=== PATIENT | male | born 1960 | race Caucasian/White ===

== ENCOUNTER 2020-02-17 09:27 | Day surgery (SDC) | payer BC ==
[2020-02-17] VITALS (8 sets, daily range): BP systolic 101–165; BP diastolic 48–86
[~2020-02-17] VITALS: Ht 180.3 cm; Wt 97.2 kg
[2020-02-17] MEDS ORDERED: VANCOMYCIN 1,500MG inj. 1,500 MG in normal saline 500ml IV soln 300 ML IV ONE (09:55)
[2020-02-17] MEDS ORDERED: normal saline 1,000 ML IV SCH (09:55)
[2020-02-17] MEDS ORDERED: ceFAZolin 2gm in dextrose, iso 50 ML IV ONE (09:55)
[2020-02-17] MEDS ORDERED: SOTA80TA73 PO (10:13)
[2020-02-17] MEDS ORDERED: ALLO100T PO (10:13)
[2020-02-17] MEDS ORDERED: ASPI81TA52 PO (10:15)
--- NOTE | 2020-02-17 10:20 | NUR ---
Dr. Moreno reviewed pts EKG. no CA per
[2020-02-17 10:29] LABS: BASOPHILS # (AUTO) 0.1 X10'3 (0-0.2); EOSINOPHILS # (AUTO) 0.4 X10'3 (0-0.9); EOSINOPHILS % (AUTO) 5.3 % (0-6); HEMATOCRIT 50.4 % (42.0-52.0); HEMOGLOBIN 16.8 g/dl (14.0-17.9); LYMPHOCYTES # (AUTO) 1.1 X10'3 (1.1-4.8); LYMPHOCYTES % (AUTO) 14.9 % (21-51); MEAN CORPUSCULAR HEMOGLOBIN 31.2 PG (27.0-31.0); MEAN CORPUSCULAR HGB CONC 33.3 g/dL (33.0-36.5); MEAN CORPUSCULAR VOLUME 93.7 FL (78-98); MEAN PLATELET VOLUME 9.3 FL (7.4-10.4); MONOCYTES # (AUTO) 0.6 X10'3 (0-0.9); MONOCYTES % (AUTO) 8.2 % (2-12); NEUTROPHILS # (AUTO) 5.1 X10'3 (1.8-7.7); NEUTROPHILS % (AUTO) 70.6 % (42-75); PLATELET COUNT 249 X10'3 (140-440); RED BLOOD COUNT 5.38 X10'6 (4.70-6.10); RED CELL DISTRIBUTION WIDTH 14.2 % (11.5-14.5); WHITE BLOOD COUNT 7.2 X10'3 (4.5-11.0)
[2020-02-17 10:35] LABS: ALBUMIN 4.4 G/DL (3.4-5.0); ANION GAP 9 (8-16); BLOOD UREA NITROGEN 36 MG/DL (7-18); BUN/CREATININE RATIO 15.9 (5.4-32.0); CALCIUM 9.5 MG/DL (8.5-10.1); CHLORIDE 104 MMOL/L (99-107); CREATININE 2.27 MG/DL (0.60-1.10); GLUCOSE 94 MG/DL (70-104); MAGNESIUM 2.1 MG/DL (1.5-2.4); POTASSIUM 4.7 MMOL/L (3.5-5.1); SODIUM 140 MMOL/L (135-145); TOTAL CARBON DIOXIDE 26.8 MMOL/L (24-32); eGFR 29 ML/MIN
[2020-02-17] MEDS ORDERED: fentaNYL/PF 50MCG/1 ML 2ML syringe ONE ×2 (10:49→11:20)
[2020-02-17] MEDS ORDERED: proCHLORperazine 10 MG/2 ml inj ONE (10:49)
[2020-02-17] MEDS ORDERED: LIDOcaine 1% W/epiNEPHrine 1:100,000 20ml vial ONE (10:50)
[2020-02-17] MEDS ORDERED: midazolam 2 mg/2 ml injection ONE ×2 (10:50→11:20)
== END 2020-02-17 14:30 | disposition home or self-care (01) ==
LOC: SSTAY O 09:27
PROVIDERS: ATTEND Internal Medicine Cardiovascular Disease
DX: Z45.02 Encounter for adjustment and management of automatic implantable cardiac defibrillator (principal); I42.8 Other cardiomyopathies; R00.0 Tachycardia, unspecified; Z95.810 Presence of automatic (implantable) cardiac defibrillator; I42.0 Dilated cardiomyopathy; N19 Unspecified kidney failure; D86.0 Sarcoidosis of lung; G47.30 Sleep apnea, unspecified
CPT/HCPCS: 33262; 36415; 80048; 83735; 85025; 85610; 93005; C1722; J0780; J2250; J3010; J7030; 99152; 99153; A4620; A6449

== ENCOUNTER 2025-01-06 06:08 | Day surgery (SDC) | payer MEDICARE ==
[2024-12-30 13:59] LABS: MEAN PLATELET VOLUME 9.4 FL (7.4-10.4); PRE OP HEMATOCRIT 43.7 % (42.0-52.0); PRE OP HEMOGLOBIN 14.1 g/dL (14.0-17.9); PRE OP PLATELET COUNT 180 X10'3 (140-440); PRE OP WHITE BLOOD COUNT 5.4 10'3 (4.8-10.8); RED CELL DISTRIBUTION WIDTH 14.5 % (11.5-14.5)
[2024-12-30 14:18] LABS: CREATININE 2.64 MG/DL (0.60-1.10); PRE OP ALT 25 U/L (30-65); PRE OP ANION GAP 6 (8-16); PRE OP AST 35 U/L (10-37); PRE OP BILIRUB, TOTAL 0.6 MG/DL (0.0-1.0); PRE OP GLUCOSE 88 MG/DL (70-104); PRE OP POTASSIUM 5.0 MMOL/L (3.4-5.1); PRE OP SODIUM 140 MMOL/L (135-145); TOTAL CARBON DIOXIDE 26.8 MMOL/L (24-32); eGFR 24 ML/MIN
--- NOTE | 2024-12-30 14:37 | RADIOLOGY REPORT ---
CT Chest without intravenous contrast INDICATION: SWELLING;MASS;LUMP TECHNIQUE: Multidetector spiral CT of the chest was performed from the lung apices to the upper abdomen. Axial, coronal and sagittal multiplanar reformats were performed. Radiation Dose : 1. Chest: CTDI volume is 10.3 mGy. Dose-length product is 381.03 mGy*cm The dose indicators for CT are the volume Computed Tomography (CT) Dose Index (CTDIvol) and the Dose Length Product (DLP), and are measured in units of mGy and mGy-cm, respectively. These indicators are not patient dose, but values generated from the CT scanner acquisition factors. The report includes radiation exposure data for exposures received during this examination. Comparison: None Findings: Lower neck: Normal thyroid. Lungs: 1.2 cm spiculated nodule in the right upper lobe, image 96. Calcified granuloma in the right lower lobe. Heart/Vascular Structures: Normal heart size. No pericardial effusion. Lymph Nodes: No adenopathy Pleura: No pleural effusion or significant pneumothorax. Musculoskeletal: No acute osseous abnormality. Degenerative changes of the spine. Soft tissues: Left chest wall pacemaker. Cardiomegaly. Upper abdomen: Limited portions of the upper abdomen are unremarkable. IMPRESSION: 1.2 cm spiculated nodule in the right upper lobe, image 96.
[2025-01-05 09:45] VITALS: BP 127/78; PULSE 60; RESP 16; O2SAT 100
[~2025-01-06] VITALS: Ht 182.9 cm; Wt 98.5 kg
[2025-01-06] VITALS (7 sets, daily range): BP systolic 111–143; BP diastolic 68–85; PULSE 50–62; RESP 10–16; TEMP 97.3; O2SAT 92–99
[2025-01-06] MEDS: DOCUMENT DATE & TIME OF BETA-BLOCKER PO ONE (05:00)
[~2025-01-06 06:08] MED LIST: ALLO100T PO; ASPI81TA52 PO; FOOT CREAM TOP; PREG50CA65 PO; ROSU5TAB51 PO; SOTA80TA73 PO
[2025-01-06] MEDS: ringers solution, lacted 1,000 ML IV SCH (06:43)
[2025-01-06] MEDS ORDERED: ondansetron/PF 4mg/2ml inj IV PRN (08:15)
[2025-01-06] MEDS ORDERED: labetalol 20mg/4ml (5mg/ml) syringe IV PRN (08:15)
[2025-01-06] MEDS ORDERED: ringers solution, lacted 1,000 ML IV SCH (08:15)
[2025-01-06] MEDS ORDERED: morphine 4 MG/ML inj SYRINge IV PRN (08:15)
[2025-01-06] MEDS ORDERED: hydrALAZINE 20mg/ml inj. IV PRN (08:15)
[2025-01-06] MEDS ORDERED: HYDROmorphone/PF 0.2 MG/ML SYRINGE IV PRN ×2 (08:15)
[2025-01-06] MEDS ORDERED: acetaminophen 1,000mg/100ml IV 100 ML IV PRN (08:15)
[2025-01-06] MEDS ORDERED: LIDOCAINE 4% (40MG/ML) topical solution 50ml **BRONCH ONLY ONE (08:19)
[2025-01-06] MEDS ORDERED: epiNEPHrine 1 MG/ML 1 ml ampule **BRONCH ONLY ONE (08:19)
[2025-01-06] MEDS ORDERED: midazolam 1 mg/ML 2ml injection ONE (08:21)
[2025-01-06] MEDS ORDERED: fentaNYL/PF 50MCG/1 ML 2ML syringe ONE (08:22)
[2025-01-06] MEDS ORDERED: rocuronium 10mg/ml inj IV ONE (08:48)
[2025-01-06] MEDS ORDERED: LIDOcaine 2% (20mg/ml) 5ml vial ONE (08:48)
[2025-01-06] MEDS ORDERED: propofol inj 20 ML IV ONE (08:48)
[2025-01-06] MEDS ORDERED: dexamethasone sod phosphate 4mg/ml inj. ONE (08:48)
[2025-01-06] MEDS ORDERED: ondansetron/PF 4mg/2ml inj ONE (08:48)
[2025-01-06] MEDS ORDERED: glycopyrrolate 0.2mg/ml inj ONE (09:37)
--- NOTE | 2025-01-07 07:28 | OPERATIVE REPORT ---
DATE OF SURGERY: 01/06/2025 DICTATING PHYSICIAN: Umang Quezada MD PROCEDURE: Bronchoscopy with a navigational system. INDICATION: The patient with a right upper lobe nodule that is seen. POSTOPERATIVE DIAGNOSIS: The patient with a right upper lobe nodule that is seen. DESCRIPTION OF PROCEDURE: Consent was signed by the patient after indications and potential complications were explained. We did a robotic bronchoscopy. There were multiple passes with a radial ultrasound, BAL, aspirations of both bronchial trees, and also cone beam CT scan. We had to navigate twice into the mass. Complications none. The patient was intubated and sedated per protocol. We passed the bronchoscope. We already had mass labeled and on the route to plan to get into the mass. Get into the mass, we could not get a good signal, so we did a cone beam CT scan and we were significantly away from the mass. So, we recalibrated and to make sure that we were right in the middle of the mass and we did another cone beam CT scan at the bedside and with the needle right into the mass, we got a very good sample. Second time around, we were able to determine that the needle was in the middle of the mass at the nodule. I obtained about 5 passes there and then we switched over to the endobronchial ultrasound bronchoscope. I got some paratracheal lymph nodes that were slightly enlarged. We obtained passes on the zone 7, 10R, and 10L. We obtained a BAL on the right upper lobe area too. The patient tolerated the procedure well. No complications. We made sure there was no pneumothorax. Umang Quezada MD TID: [id number] RECEIPT: [id number] /PHA
--- NOTE | 2025-01-09 17:20 | PATHOLOGY REPORT ---
[facility] [address] [place] [address] NON-V BELT INSPECTOR CYTOLOGY REPORT CaseNumber: [id number] Surgeon:Umang Quezada PA-C CLINICAL INFORMATION CLINICAL INFORMATION: Patient with right upper lobe mass. DIAGNOSIS DIAGNOSIS: A.LUNG, RIGHT UPPER LOBE; BIOPSY - BENIGN BRONCHIAL MUCOSA. DIAGNOSIS: B.LUNG, RIGHT UPPER LOBE; FINE NEEDLE ASPIRATION - NEGATIVE FOR MALIGNANT CELL POPULATION. DIAGNOSIS: C.LYMPH NODE, STATION 7, 10R, 10L; FINE NEEDLE ASP - NEGATIVE FOR MALIGNANT EPITHELIAL CELL POPULATION. MICROSCOPIC DESCRIPTION A. LUNG, RIGHT UPPER LOBE MICROSCOPIC DESCRIPTION: One slide from part A is examined. Present is benign bronchial mucosa. A minute piece of cartilage is part of the specimen. There is no significant inflammation including granuloma and no neoplasia. B. LUNG, RIGHT UPPER LOBE MICROSCOPIC DESCRIPTION: One H&E stained slide from cell block and one Pap stained double cytospin slide are examined. Present is benign ciliated respiratory-type epithelium in the form of both picket-fence formations and individual cells. There are background blood elements. There is no significant cytologic atypia. C. LYMPH NODE, STATION 7, 10R, 10L MICROSCOPIC DESCRIPTION: One H&E stained slide and one Pap stained double cytospin slide from part C are examined. Present are cartilage, benign columnar ciliated respiratory-type epithelium, and lymphoid sampling. The lymphoid sampl ing includes not only small centrocyte-type lymphoid cells but histiocytes including anthracotically pigmented histiocytes. The findings are consistent with lymph node sampling. A malignant epithelial cell population is not identified. (st) GROSS DESCRIPTION A. LUNG, RIGHT UPPER LOBE GROSS DESCRIPTION: Received in a container of formalin labeled with the patient's name, number, and "RUL biopsy "is a 0.5 x 0.4 x 0.3 cm aggregate of irregularly shaped pieces of pink-hernandez tissue submitted entirely as A1.The time at which the specimen was removed was 09. The time at which the specimen was placed in formalin was 09. B. LUNG, RIGHT UPPER LOBE GROSS DESCRIPTION: Specimen is received in cytostat red, labeled with the patient's name and identified as "RUL FNA", having a total volume of 5mL. One double cytospin slide and one cell block is prepared. The cell block is submitted as B!. The time at which the specimen was collected was 0840. The time at which the specimen was placed in formalin was 1310. (fc) C. LYMPH NODE, STATION 7, 10R, 10L GROSS DESCRIPTION: Specimen is received in cytostat red, labeled with the patient's name and identified as "FNA 7/10R/10L", having a total volume of 12.5 mL. One double cytospin slide and one cell block is prepared. The cell block is submitted as C1. The time at which the specimen was collected was 0840. The time at which the specimen was placed in formalin was 1315. (fc) Electronically signed by: Troy Lucero M.D. 01/09/2025 4:43:00 PM
== END 2025-01-06 10:45 | disposition home or self-care (01) ==
LOC: PAS 06:08
PROVIDERS: ATTEND Internal Medicine Critical Care Medicine
DX: R22.2 Localized swelling, mass and lump, trunk (principal); I13.0 Hypertensive heart and chronic kidney disease with heart failure and stage 1 through stage 4 chronic kidney disease, or unspecified chronic kidney disease; N18.4 Chronic kidney disease, stage 4 (severe); J44.9 Chronic obstructive pulmonary disease, unspecified; G47.33 Obstructive sleep apnea (adult) (pediatric); E78.5 Hyperlipidemia, unspecified; J43.9 Emphysema, unspecified; I42.9 Cardiomyopathy, unspecified; M10.9 Gout, unspecified; M19.90 Unspecified osteoarthritis, unspecified site; Z79.82 Long term (current) use of aspirin; Z79.899 Other long term (current) drug therapy; Z90.89 Acquired absence of other organs; Z95.810 Presence of automatic (implantable) cardiac defibrillator; Z98.890 Other specified postprocedural states; Z88.2 Allergy status to sulfonamides
CPT/HCPCS: 31624; 31627; 31628; 31645; 31653; 36415; 71250; 80053; 82948; 85025; 87015; 87070; 87116; 87206; 88173; 88305; A4618; J1100; J2003; J2250; J2405; J2704; J2710; J3010; J3490; J7120; Z7506; Z7508; Z7512; Z7610; 31625; 31626; 31654; J0169